=== PATIENT | female | born 1990 ===

== ENCOUNTER → 2016-06-05 | Outpatient (CLI) | payer OTHER | END | disposition home or self-care (01) | LOC: C.PAPS 09:58 | PROVIDERS: ATTEND Obstetrics & Gynecology | DX: N87.1 Moderate cervical dysplasia (principal) ==

== ENCOUNTER → 2017-05-08 | Outpatient (CLI) | payer OTHER | END | disposition home or self-care (01) | LOC: C.PAPS 14:59 | PROVIDERS: ATTEND Physician Assistant | DX: Z12.4 Encounter for screening for malignant neoplasm of cervix (principal); Z11.51 Encounter for screening for human papillomavirus (HPV) ==